=== PATIENT | female | born 1940 | race Caucasian/White ===

== ENCOUNTER → 2023-07-05 | Emergency (ER) | payer OTHER, MEDICARE ==
[2023-07-05 15:06] LABS: Absolute Lymphocytes (CBC) 1.2 K/uL (0.7-4.9); Hematocrit 37.2 % (36.0-45.0); Lymphocytes % 26.6 % (15.3-44.8); MCV 86.3 fL (80-100); MPV 7.6 fL (7.6-11.3); Platelets 170 thou/uL (152-406); RBC Red Blood Cell Count 4.31 M/uL (3.86-4.86)
[2023-07-05 15:18] LABS: Protime INR 1.07
[2023-07-05 15:28] LABS: Albumin 3.6 g/dL (3.4-5.0); Bilirubin Direct 0.2 mg/dL (0-0.2); Bilirubin Indirect, Calculated 0.4 mg/dL (0.2-0.8); Bilirubin Total 0.6 mg/dL (0.2-1.0); Protein, Total 7.3 g/dL (6.4-8.2); Troponin High Sensitivity 6.9 pg/mL (<58.9)
[2023-07-05 15:34] LABS: Magnesium 2.1 mg/dL (1.6-2.4); Potassium 3.7 mEq/L (3.5-5.1)
--- NOTE | 2023-07-05 16:09 | RAD REPORT ---
[facility] 3:23 pm CLINICAL HISTORY: COUGH COMPARISON: Chest Pa And Lat (2 Views) dated 09/28/2021; CHEST SINGLE VIEW dated 05/18/2013; CHEST PA A ND LAT 2 VIEW dated 10/31/2008; CHEST PA AND LAT 2 VIEW dated 07/24/2007; Chest For Pe Angio dated 07/05 TECHNIQUE: Portable AP view of the chest. FINDINGS: Large left diaphragmatic hernia and adjacent atelectasis, stable. No other acute lung find ings. No pneumothorax or effusion. The cardiomediastinal contours are unremarkable. IMPRESSION: No acute cardiopulmonary process. Stable findings as above.
--- NOTE | 2023-07-05 16:57 | P.CNS ---
Date of Consult: 07/05/23 Reason for Consult: DVT/PE Requesting Physician: Jose F Torres Primary Care Provider: Jen Chief Complaint: DVT/PE History of Present Illness: Patient is an 83-year-old female who went to her PCP today and ultrasound revealed DVT. Patient had phlebitis as well. Patient had further workup which revealed pulmonary embolism. Patient was started on Eliquis. At this time, patient will is not hypoxic. There is no right heart strain. Patient is wanting to discharge home with outpatient follow-up. Patient was explained that she needs malignancy workup as well. She does have a density on her left breast that needs a mammogram. Also needs outpatient colonoscopy and gynecologic exam. At this time, patient is doing well and will discharge with Eliquis twice a day and Voltaren gel. Allergies Jmliqdo-HNF-DuE Reductase Inhibitor [Tbanlxb-Stz-Gvu Reductase Inhibitor] Adverse Reaction (Verified 06/15/15 10:39) body aches Home Medications: Dorzolamide HCl [Trusopt] 1 drop OP BID 05/18/13 Ascorbic Acid [Vitamin C*] 500 mg PO DAILY 06/15/15 Cholecalciferol (Vitamin D3) [Vitamin D3] 400 unit PO DAILY 06/15/15 Cyanocobalamin [Vitamin B-12*] 1,000 mcg PO DAILY 06/15/15 Valsartan [Diovan] 320 mg PO DAILY 06/15/15 Apixaban [Eliquis] 5 mg PO BID #60 tablet 07/05/23 Apixaban [Eliquis] 5 mg PO BID #60 tablet 07/05/23 Diclofenac Sodium [Voltaren] 1 stephanie TP BID #1 tube 07/05/23 - Past Medical/Surgical History Diabetic: No -: HTN -: Hyperlipidemia -: glaucoma -: Deep venous thrombosis Past Surgical History: Patient denies surgical history Psychosocial/ Personal History: -51 years, Children-3, Retired-Own business - Family History Father Family History: Reviewed- Non-Contributory - Social History Smoking Status: Never smoker Alcohol use: No CD- Drugs: No Caffeine use: Yes Review of Systems 10-point ROS is otherwise unremarkable Physical Examination Reviewed General: Alert, In no apparent distress, Oriented x3 HEENT: Atraumatic, PERRLA, Mucous membr. moist/pink, EOMI, Sclerae nonicteric Neck: Supple, 2+ carotid pulse no bruit, No LAD, Without JVD or thyroid abnormality Respiratory: Clear to auscultation bilaterally, Normal air movement Cardiovascular: Regular rate/rhythm, Normal S1 S2 Gastrointestinal: Normal bowel sounds, No tenderness Musculoskeletal: No tenderness Integumentary: Tenderness/swelling, Erythema, Warmth Neurological: Normal gait, Normal speech, Normal tone, Normal affect Lymphatics: No axilla or inguinal lymphadenopathy Laboratory Data (last 24 hrs) 07/05/23 07/05/23 07/05/23 14:51 14:51 14:51 WBC 4.40 Hgb 12.4 Hct 37.2 Plt Count 170 PT 11.7 INR 1.07 Sodium 138 Potassium 3.7 BUN 24 H Creatinine 0.87 Glucose 89 Magnesium 2.1 Total Bilirubin 0.6 AST 14 L ALT 24 Alkaline Phosphatase 102 - Problems (1) Deep venous thrombosis Current Visit: Yes Status: Acute (2) Pulmonary embolism Current Visit: Yes Status: Acute (3) Phlebitis Current Visit: Yes Status: Acute Conclusions/ Impression: Plan: 1. Continue with Eliquis as ordered. Outpatient follow-up with PCP 2. Voltaren gel to the area of phlebitis 3. Outpatient malignancy workup including Pap smear, mammogram, and colonoscopy. Critical Care: No Time Spent Managing Pts care (In Minutes): 45
--- NOTE | 2023-07-05 17:19 | ER ---
Nurse's Notes [facility] Name: Martha Lockwood Age: 83 yrs Sex: Female : 1940 Arrival Date: 07/05/2023 Time: 14:40 Bed 3 Private MD: Diagnosis: Left lower extremity venous thrombosis;Small occlusive and semiocclusive pulmonary emboli Presentation: 07/05 14:56 Chief complaint: Patient states: doctor is concerned for blood clots. Coronavirus cp4 screen: Client denies travel out of the [place] in the last 14 days. At this time, the client does not indicate any symptoms associated with coronavirus-19. Ebola Screen: Patient negative for fever greater than or equal to 101.5 degrees Fahrenheit, and additional compatible Ebola Virus Disease symptoms Patient denies exposure to infectious person. Patient denies travel to an Ebola-affected area in the 21 days before illness onset. No symptoms or risks identified at this time. Initial Sepsis Screen: Does the patient meet any 2 criteria? No. Patient's initial sepsis screen is negative. Does the patient have a suspected source of infection? No. Patient's initial sepsis screen is negative. Risk Assessment: Do you want to hurt yourself or someone else? Patient reports no desire to harm self or others. Onset of symptoms is unknown. 14:56 Method Of Arrival: Ambulatory cp4 14:56 Acuity: CRISS 3 cp4 Triage Assessment: 14:57 General: Appears in no apparent distress. Behavior is calm, cooperative, appropriate cp4 for age. Pain: Denies pain. Cardiovascular: Denies chest pain, fatigue, shortness of breath. Historical: - Allergies: 14:57 Lactulose; cp4 - Immunization history:: Adult Immunizations up to date. - Social history:: Smoking status: Patient denies any tobacco usage or history of. Screenin:01 [facility] ED Fall Risk Assessment (Adult) History of falling in the last 3 months, cp4 including since admission No falls in past 3 months (0 pts) Confusion or Disorientation No (0 pts) Intoxicated or Sedated No (0 pts) Impaired Gait No (0 pts) Mobility Assist Device Used No (0 pt) Altered Elimination No (0 pt) Score/Fall Risk Level 0 - 2 = Low Risk Oriented to surroundings, Maintained a safe environment, Educated pt \T\ family on fall prevention, incl call for assistance when getting out of bed, Assessed \T\ reinforced patient's understanding of fall precautions, Hourly rounding (assess needs \T\ fall precautionary measures) done. Abuse screen: Denies threats or abuse. Nutritional screening: No deficits noted. Tuberculosis screening: No symptoms or risk factors identified. Assessment: 15:01 Reassessment: Patient appears in no apparent distress at this time. cp4 Vital Signs: 14:57 BP 153 / 55; Pulse 64; Resp 16; Temp 98; Pulse Ox 100% ; cp4 16:00 BP 161 / 56; Pulse 55; Resp 16; Pulse Ox 100% ; cp4 17:00 BP 171 / 60; Pulse 62; Resp 16; Pulse Ox 100% ; cp4 ED Course: 14:44 Patient arrived in ED. ra3 14:45 Jose F Torres MD is Attending Physician. kdr 14:48 Aggie Camp is Primary Nurse. cp4 14:57 Triage completed. cp4 14:57 Arm band placed on right wrist. Patient placed in an exam room, on a stretcher. cp4 15:01 Bed in low position. Call light in reach. Side rails up X 1. cp4 15:25 XRAY Chest (1 view) In Process Unspecified. EDMS 17:43 Provided Education on: dvt, pe. cp4 17:43 No provider procedures requiring assistance completed. intact, bleeding controlled, No cp4 redness/swelling at site. Pressure dressing applied. Administered Medications: No medications were administered Medication: 15:01 VIS not applicable for this client. cp4 Outcome: 17:18 Discharge ordered by . kdr 17:43 Discharged to home ambulatory, cp4 17:43 Condition: stable 17:43 Discharge instructions given to patient, Instructed on discharge instructions, follow up and referral plans. medication usage, Demonstrated understanding of instructions, follow-up care, medications, Prescriptions given X 1, 17:45 Patient left the ED. cp4 Signatures: Dispatcher [employer] EDCT Jose F Torres MD MD kdr Potter, Christina cp4 Chelo Durand ra3
--- NOTE | 2023-07-05 17:19 | EDPHYS ---
Physician Documentation [facility] Name: Martha Lockwood Age: 83 yrs Sex: Female : 1940 Arrival Date: 07/05/2023 Time: 14:40 Bed 3 Private MD: ED Physician Jose F Torres Historical: - Allergies: 07/05 14:57 Lactulose; cp4 - Immunization history:: Adult Immunizations up to date. - Social history:: Smoking status: Patient denies any tobacco usage or history of. Vital Signs: 14:57 BP 153 / 55; Pulse 64; Resp 16; Temp 98; Pulse Ox 100% ; cp4 16:00 BP 161 / 56; Pulse 55; Resp 16; Pulse Ox 100% ; cp4 17:00 BP 171 / 60; Pulse 62; Resp 16; Pulse Ox 100% ; cp4 MDM: 17:18 Patient medically screened. [facility] 07/05 14:51 Order name: Basic Metabolic Panel; Complete Time: 15:58 [facility] 07/05 14:51 Order name: CBC with Diff; Complete Time: 15:58 [facility] 07/05 14:51 Order name: D-Dimer; Complete Time: 15:58 [facility] 07/05 14:51 Order name: LFT's; Complete Time: 15:58 [facility] 07/05 14:51 Order name: Magnesium; Complete Time: 15:58 [facility] 07/05 14:51 Order name: NT PRO-BNP; Complete Time: 15:58 [facility] 07/05 14:51 Order name: PT-INR; Complete Time: 15:58 [facility] 07/05 14:51 Order name: Troponin HS; Complete Time: 15:58 [facility] 07/05 14:51 Order name: XRAY Chest (1 view) [facility] 07/05 14:51 Order name: EKG; Complete Time: 14:51 [facility] 07/05 14:51 Order name: Cardiac monitoring; Complete Time: 15:02 [facility] 07/05 14:51 Order name: EKG - Nurse/Tech; Complete Time: 15:13 [facility] 07/05 14:51 Order name: IV Saline Lock; Complete Time: 15:02 [facility] 07/05 14:51 Order name: Labs collected and sent; Complete Time: 15:02 [facility] 07/05 14:51 Order name: O2 Per Protocol; Complete Time: 15:02 [facility] 07/05 14:51 Order name: O2 Sat Monitoring; Complete Time: 15:02 kdr Administered Medications: No medications were administered Disposition Summary: 07/05/23 17:18 Discharge Ordered Problem: new kdr Symptoms: have improved kdr Condition: Stable kdr Diagnosis - Left lower extremity venous thrombosis kdr - Small occlusive and semiocclusive pulmonary emboli kdr Followup: kdr - With: Private Physician - When: 2 - 3 days - Reason: If symptoms return, Further diagnostic work-up, Recheck today's complaints, Continuance of care, Re-evaluation by your physician Discharge Instructions: - Discharge Summary Sheet kdr - Deep Vein Thrombosis kdr - Pulmonary Embolism kdr Forms: - Medication Reconciliation Form kdr - Thank You Letter kdr - Patient Portal Instructions kdr - Leadership Thank You Letter kdr Prescriptions: - Voltaren Arthritis Pain 1 % Topical gel - apply 2 gram TOPICAL route 4 times per day As needed apply to single elbow, kdr wrist or hand; for hand includes palm/fingers/back of hand; 1 unit; Refills: 0, Product Selection Permitted Signatures: Dispatcher [employer] Jose F Goncalves MD MD kdr Aggie Camp cp4
[2023-07-05 18:02] VITALS: BP 171/60; TEMP 98; O2SAT 100
--- NOTE | 2023-07-07 14:34 | EKG ---
Test Date: 2023-07-05 Test Time: 15:11:25 Marketing Reporting Analyst: STEFANIE MEASUREMENT RESULTS: Intervals: Rate: 59 NJ: 148 QRSD: 80 QT: 444 QTc: 439 [place]: P: 34 NJ: 148 QRS: 64 T: 12 INTERPRETIVE STATEMENTS: Sinus bradycardia ST abnormality, possible digitalis effect Abnormal ECG Compared to ECG 03/07/2014 10:42:21 Sinus rhythm no longer present ST (T wave) deviation still present Electronically Signed On 07-07-23 14:28:31 AWNING HANGER SUPERVISOR by Ricky Ferreira
== END | disposition home or self-care (01) ==
LOC: ER 14:40
DX: I82.402 Acute embolism and thrombosis of unspecified deep veins of left lower extremity (principal); I26.99 Other pulmonary embolism without acute cor pulmonale; I10 Essential (primary) hypertension; Z86.718 Personal history of other venous thrombosis and embolism; Z79.01 Long term (current) use of anticoagulants; Z88.8 Allergy status to other drugs, medicaments and biological substances
CPT/HCPCS: 36415; 71045; 80048; 80076; 83735; 83880; 84484; 85025; 85379; 85610; 93005; 99283